=== PATIENT | female | born 1970 | race African-American/Black ===

== ENCOUNTER 2016-07-24 12:00 | Emergency (ER) | payer BC ==
[~2016-07-24] VITALS: Ht 165.1 cm; Wt 114.0 kg
[2016-07-24 12:31] VITALS: BP 124/78; PULSE 84; RESP 16; TEMP 99; O2SAT 97
[2016-07-24] MEDS ORDERED: BENZ100 PO (13:15)
--- NOTE | 2016-07-24 13:16 | PD ---
HPI Chief Complaint: Cold / Flu Symptoms Time Seen by Provider: 13:15 Travel History International Travel<30 days: No Contact w/Intl Traveler<30days: No Traveled to known affect area: No History of Present Illness HPI 45-year-old female presents to the emergency department for evaluation of headache, nasal congestion and postnasal drainage procedure to 3 days. Patient states that her has had a cold over the past week and she feels that she may be developing the same symptoms. She's had a mild cough. She denies any fever, chills, nausea, vomiting, shortness of breath, sore throat, ear pain. Denies any recent travel. Denies , last menstrual period 1 week ago. She is here asking how to avoid getting the cold her has. No other complaints. PFSH Past Medical History Medical History: Denies Significant Hx Diminished Hearing: No Immunizations Current: Yes Tetanus Vaccination: Unknown Influenza Vaccination: No ?: Not LMP: 1 week ago Past Surgical History Other Surgery: Yes (THYROID BX) Social History Alcohol Use: No Tobacco Use: No Substance Use: No Allergies-Medications (Allergen,Severity, Reaction): Coded Allergies: No Known Allergies (Unverified , 07/24/16) Reported Meds & Prescriptions Reported Meds & Active Scripts Active Tessalon Perles (Benzonatate) 100 Mg Cap 100 Mg PO TID PRN 7 Days Review of Systems Except as stated in HPI: all other systems reviewed are Neg Physical Exam Narrative GENERAL: Well-nourished and well-developed pleasant female patient in no acute distress who is nontoxic appearing. SKIN: Warm and dry. HEAD: Normocephalic and atraumatic. EYES: No injection, drainage, or hyphema noted. PERRLA. EOMI. ENT: No nasal drainage noted. Oropharynx is clear and the TMs are normal with good landmarks. NECK: Supple and the trachea is midline. No lymphadenopathy is noted throughout the cervical chains. CARDIOVASCULAR: Regular rate and rhythm. RESPIRATORY: Breath sounds are equal bilaterally with no accessory muscle use, wheezing, rhonchi, or crackles.. NEUROLOGICAL: Awake, alert, and oriented. Normal speech and gait. Cranial nerves are grossly intact. Data Data Last Documented VS Vital Signs Date Time Temp Pulse Resp B/P Pulse Ox O2 Delivery O2 Flow Rate FiO2 07/24/16 12:55 99 Room Air 07/24/16 12:31 99.0 84 16 124/78 [facility] Medical Decision Making Medical Screen Exam Complete: Yes Emergency Medical Condition: Yes Differential Diagnosis URI versus seasonal allergies versus influenza Narrative Course 45-year-old female presents to the emergency department for evaluation of cold symptoms for 3 days. Patient is afebrile, vital signs are stable. Her has had similar symptoms over the past week and she is here asking about avoid getting the same cold he has had. Physical examination is essentially unremarkable. She appears very well overall. Discussed supportive care with patient. Advised follow-up with her PCP. Diagnosis Primary Impression: Upper respiratory infection Qualified Code: J06.9 - Viral upper respiratory tract infection Referrals: Primary Care Physician Patient Instructions: General Instructions, Upper Respiratory Infection (ED) Additional Instructions: Take [id number] Zyrtec or Claritin. You can try Zicam as well. Follow-up with your Primary Care Physician as needed. Return to the ED for any acute worsening of symptoms. Med/Other Pt SpecificInfo: Prescription(s) given Scripts Benzonatate (Tessalon Perles)100 Mg [id number] Mg PO TID PRN (COUGH) 7 Days Ref 0 Prov:Arnoldo Pickett MD 07/24/16 Disposition: 01 DISCHARGE HOME Condition: Stable Rosie Pace Jul 24, 2016 13:16
== END 2016-07-24 13:30 | disposition home or self-care (01) ==
LOC: PHEFT 12:00
DX: J06.9 Acute upper respiratory infection, unspecified (principal); R51 Headache; R05 Cough
CPT/HCPCS: 99283